=== PATIENT | male | born 1960 | race Caucasian/White ===

== ENCOUNTER 2019-06-10 01:56 | Day surgery (SDC) | payer BC, SELFPAY ==
[2019-06-03 10:16] VITALS: BMI 32.2
[2019-06-10] VITALS (7 sets, daily range): BP systolic 95–142; BP diastolic 62–98; PULSE 38–52; RESP 12–20; TEMP 36.5–36.8; O2SAT 97–100
--- NOTE | 2019-06-10 07:14 | WPDHPUPDATE1 ---
History and Physical Update Update Date/Time: 06/10/19 07:14 History and Physical has been reviewed, including an updated exam of the patient. There are NO changes in the patient's condition. Risks, benefits, and alternatives have been discussed and questions answered. Patient agrees to proceed with procedure.
--- NOTE | 2019-06-10 07:15 | WPDHPUPDATE1 ---
History and Physical Update Update Date/Time: 06/10/19 07:15 History and Physical has been reviewed, including an updated exam of the patient. There are NO changes in the patient's condition. Risks, benefits, and alternatives have been discussed and questions answered. Patient agrees to proceed with procedure.
[2019-06-10] MEDS: LACTATED RINGERS 1,000 ML 30 ML IV CONT (09:53)
--- NOTE | 2019-06-10 09:58 | P.PNAN_ITS ---
Anes - Initial Pre Proc Eval Procedure: Operation Date: 06/10/19 11:30 Proposed Procedures p Cystoscopy, Urethral Dilatation Possible Optical Internal Urethrotomy - Oscar Moreno MD Date/Time: 06/10/19 09:58 Surgeon: Oscar Moreno MD Pre Op Diagnosis: Retention Patient Data Age: 58 Gender: M Height: 1.93 m Weight: 120.2 kg Allergies Allergy/AdvReac Type Severity Reaction Status Date / Time No Known Allergies Allergy Verified 06/03/19 10:17 Home Medications Medication Instructions Recorded Confirmed Type Vitamin D3 1 tablet PO DAILY 06/03/19 06/10/19 History Patient hx anesthesia problems: none Family hx anesthesia problems: none [facility] Surgical History Surgical History (Updated 06/09/19 @ 13:02 by Omid Wolfe DO) H/O foot surgery x4 Anes - Eval Final PreProcedure Day of Procedure 06/10/19 09:58 Patient weight: obese Heart: regular rate and rhythm Lungs: clear to auscultation and normal air movement Airway: Mallampati scale class II Neurological: alert and oriented Last oral intake: >/= 8 hours ASA classification: II Emergent: no Anesthetic plan: proceed Anesthesia type and monitoring: general LMA and standard monitoring Informed Consent: The patient's anesthetic plan and its attendant risks and benefits were discussed with the patient/family/POA. Questions were solicited and answers provided to the satisfaction of the patient/family/POA.
[2019-06-10] MEDS: ceFAZolin 2 GM/D5W 50 ML 2 GM/50 ML BAG IVPB (11:21)
--- NOTE | 2019-06-10 12:07 | PM.PROC ---
Procedure Note - Detailed Date of procedure: 06/10/19 Pre-op diagnosis: Retention Post-op diagnosis: same Procedure performed: Optical, internal urethrotomy. Description of procedure: The patient was brought to the operative suite where he was prepped and draped in a routine sterile fashion while in a dorsal lithotomy position after the uneventful administration of systemic sedation by the anesthesia department. 2% Lidocaine was placed in the uretha and allowed to stand for an appropriate period of time. Cystoscopy was undertaken with a 19F rigid cystoscope. 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 The bladder itself was endoscopically normal without foreign body or neoplasm. The bladder mucosa was without hyperemia. There was a single orthotopic ureteral orifice bilaterally with clear reflex of urine. Using the optical urethratome, I incised the strictured urethra at the 12 o'clock position care taken to avoid injury to the membranous urethra. An 18F Cordova catheter was placed, the bladder was emptied and the patient was taken to the recovery room in good condition. Anesthesia: GLMA Surgeon: Oscar Moreno MD Estimated blood loss (mL): 0 Drains: Yes (18F Cordova catheter) Packing: No Pathology: none sent Complications: No immediate complications Condition: stable Disposition: PACU
[2019-06-10] MEDS: GLYCOPYRROLATE INJ (*SP) 0.2 MG/ML VIAL IV PUSH (12:35)
--- NOTE | 2019-06-10 12:35 | SUR.PHASEI ---
[address] arce and aware pt heart rate 40 s . good mentation. bp 135/83. orders received and robinol given. pt states nornal heart rate 40's.
== END 2019-06-10 13:40 | disposition home or self-care (01) ==
PROVIDERS: Visit Provider Urology
PROC: 0T7D8ZZ Dilation of Urethra, Via Natural or Artificial Opening Endoscopic (ICD-10-PCS; CPT 52281; principal; 2019-06-10 11:30)
DX: N35.912 Unspecified bulbous urethral stricture, male (principal); R33.8 Other retention of urine; E66.9 Obesity, unspecified; Z68.30 Body mass index [BMI] 30.0-30.9, adult
CPT/HCPCS: 52276; A9270; C1769; J0131; J0690; J1100; J2250; J2405; J2704; J3010; J7120